=== PATIENT | male | born 1960 ===

== ENCOUNTER 2017-02-15 13:03 | Emergency (ER) | payer OTHER ==
[2017-02-15 13:03] VITALS: BMI 32.1
[2017-02-15 13:16] VITALS: RESP 20; TEMP 97.7
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
[2017-02-15] MEDS ORDERED: Bacitracin 500 Units/gm Oint Foilpak UD ONE (13:50)
[2017-02-15 14:13] VITALS: BP 122/79; PULSE 77; O2SAT 99
--- NOTE | 2017-02-15 14:53 | RAD ---
PROCEDURE: Radiographs of the Chest and Right Ribs. HISTORY: pain R rib post fall COMPARISON: None available. TECHNIQUE: Frontal radiograph of the chest and multiple oblique radiographs of the right ribs were obtained. FINDINGS: RIGHT RIBS: No appreciable displaced fracture. LUNGS: No focal consolidation. Please note that chest x-ray has limited sensitivity for the detection of pulmonary masses. PLEURA: No significant free fluid. No definite free air. CARDIOVASCULAR: Heart size appears top normal. OTHER FINDINGS: Degenerative changes of the spine. IMPRESSION: Unremarkable radiographs of the chest and right ribs. No appreciable displaced right rib fracture.
== END 2017-02-15 14:20 | disposition home or self-care (01) ==
LOC: C.ER 13:03
DX: S20.211A Contusion of right front wall of thorax, initial encounter (principal); S00.81XA Abrasion of other part of head, initial encounter; V18.0XXA Pedal cycle driver injured in noncollision transport accident in nontraffic accident, initial encounter; Y93.55 Activity, bike riding

== ENCOUNTER 2017-02-25 09:55 | Emergency (ER) | payer OTHER ==
[2017-02-25 09:55] VITALS: BMI 32.1
[2017-02-25 10:08] VITALS: BP 136/90; PULSE 85; RESP 16; TEMP 97.3; O2SAT 98
--- NOTE | 2017-02-25 11:23 | RAD ---
PROCEDURE: Left Knee Radiographs. HISTORY: Pain. COMPARISON: None. FINDINGS: BONES: No fracture. Incidental enthesophytes at superior and inferior pole of patella. JOINTS: Normal. No osteoarthritis. JOINT EFFUSION: None. OTHER FINDINGS: None. IMPRESSION: No acute fracture.
--- NOTE | 2017-02-25 11:47 | C.PDOC ---
History Of Present Illness 56 yr old male presents to the ER with complaints of left knee pain since last night. Patient states he was walking, when he twisted his knee and heard a pop. Patient states he has been walking but with pain to the inside of the left knee. Denies fall, injuries, leg pain, back pain, foot pain, weakness or numbness. Time Seen by Provider: 02/25/17 10:14 Chief Complaint (Nursing): Lower Extremity Problem/Injury History Per: Patient History/Exam Limitations: no limitations Onset/Duration Of Symptoms: Sudden Onset (Last night ) Current Symptoms Are (Timing): Still Present Past Medical History Reviewed: Historical Data, Nursing Documentation, Vital Signs Vital Signs: Last Vital Signs Temp 97.3 F L 02/25/17 09:59 Pulse 85 02/25/17 09:59 Resp 16 02/25/17 09:59 BP 136/90 02/25/17 09:59 Pulse Ox 98 02/25/17 13:32 - Medical History PMH: Back Problems, Diabetes (type II), HTN Surgical History: Appendectomy, Tonsillectomy - [facility] Procedures DPT ADMINISTRATION (09/27/14) IMMOBILIZ/WOUND ATTN NEC (10/11/13) INJECT/INFUSE NEC (06/16/14) Family History: States: No Known Family Hx - Social History Hx Tobacco Use: No Hx Alcohol Use: No Hx Substance Use: No - Immunization History Hx Tetanus Toxoid Vaccination: Yes (11/2016) Hx Influenza Vaccination: Yes (2015) Hx Pneumococcal Vaccination: No Review Of Systems Except As Marked, All Systems Reviewed And Found Negative. Musculoskeletal: Positive for: Other ((+) Left knee pain ). Negative for: Back Pain, Leg Pain, Foot Pain Neurological: Negative for: Weakness, Numbness Physical Exam - Physical Exam Appears: Non-toxic, No Acute Distress Skin: Warm, Dry Head: Atraumatic, Normacephalic Extremity: Tenderness (Left knee, point tenderness to the medial aspect. ), No Calf Tenderness, Capillary Refill (<2), Other ((+) Left Knee - Pain increases with valgus stretch and decreases with varus stretch. ) Neurological/Psych: Oriented x3, Normal Speech, Normal Motor ED Course And Treatment O2 Sat by Pulse Oximetry: 98 (RA ) Pulse Ox Interpretation: Normal - Other Rad X-Ray - Left Knee X-Ray: Viewed By Me, Read By Radiologist Interpretation: PROCEDURE: Left Knee Radiographs. HISTORY: Pain. COMPARISON : None. FINDINGS: BONES: No fracture. Incidental enthesophytes at superior and inferior pole of patella. JOINTS: Normal. No osteoarthritis. JOINT EFFUSION: None. OTHER FINDINGS: None. IMPRESSION: No acute fracture. Medical Decision Making Medical Decision Making: PLAN: * X-Ray - Left Knee Disposition - Disposition Referrals: [facility] [place], [Non-Staff] - Disposition: HOME/ ROUTINE Disposition Time: 11:00 Condition: GOOD Additional Instructions: Thank you for letting us take care of you today. Your provider was Dr. Salcido. You were treated for knee pain. The emergency medical care you received today was directed at your acute symptoms. If you were prescribed any medication, please fill it and take as directed. It may take several days for your symptoms to resolve. Return to the Emergency Department if your symptoms worsen, do not improve, or if you have any other problems. Please contact your doctor or call one of the physicians/clinics you have been referred to that are listed on the Patient Visit Information form that is included in your discharge packet. Bring any paperwork you were given at discharge with you along with any medications you are taking to your follow up visit. Our treatment cannot replace ongoing medical care by a primary care provider (PCP) outside of the emergency department. Thank you for allowing the [facility] team to be part of your care today. Wear a knee brace (like the one I showed you) and follow up with your doctor in 1-2 weeks for re-evaluation and possible further management. Instructions: Knee Pain (ED) Forms: [facility] (Bhutanese) - Clinical Impression Clinical Impression: Knee pain - Scribe Statement The provider has reviewed the documentation as recorded by the Scribe Jenae Campbell Provider Attestation: All medical record entries made by the Scribe were at my direction and personally dictated by me. I have reviewed the chart and agree that the record accurately reflects my personal performance of the history, physical exam, medical decision making, and the department course for this patient. I have also personally directed, reviewed, and agree with the discharge instructions and disposition.
== END 2017-02-25 11:20 | disposition home or self-care (01) ==
LOC: C.ER 09:55
DX: M25.562 Pain in left knee (principal)